=== PATIENT | male | born 1980 | race Caucasian/White ===

== ENCOUNTER 2022-10-01 17:46 | Emergency (ER) | payer BC ==
[2022-10-01] MEDS ORDERED: Sodium Chloride 0.9% 10 ML Syringe FLUSH PRN (17:49)
[2022-10-01] MEDS ORDERED: Aspirin 81 MG Tab.Chew PO ONE (17:49)
[2022-10-01] MEDS ORDERED: Sodium Chloride 0.9% 2.5 ML Syringe FLUSH PRN (17:49)
[2022-10-01] MEDS ORDERED: Morphine 4 MG/ML Syringe IVPUSH ONE (17:57)
[2022-10-01] MEDS ORDERED: Ondansetron 4 MG/2 ML SDV IVPUSH ONE (17:57)
[2022-10-01] MEDS ORDERED: Sodium Chloride 0.9% 1,000 ML IV ONE (17:57)
[2022-10-01 18:42] LABS: BLOOD UREA NITROGEN,BUN 25 mg/dL (7.0-18.0); CARBON DIOXIDE,CO2 29.1 mmol/L (21.0-32.0); CHLORIDE,CL 103 mmol/L (98-107); GLUCOSE RANDOM 92 mg/dL (74-106); POTASSIUM,K 4.1 mmol/L (3.5-5.1); SODIUM,NA 141 mmol/L (136-148)
[2022-10-01 19:00] LABS: ESTIMATED GFR 77 mL/min (>60)
[2022-10-01] MEDS ORDERED: Alum Hydro/Mag Hydro/Simeth XS 15 ML, Metoclopramide 5 MG, Lidocaine 2% 5 ML PO ONE ×3 (19:44)
== END 2022-10-01 20:05 | disposition home or self-care (01) ==
LOC: MW.ED 17:46
DX: R07.9 Chest pain, unspecified (principal)
CPT/HCPCS: 36415; 71045; 80053; 83690; 84484; 85025; 85379; 93005; 96361; 96374; 96375; 99285; A9270; J2270; J2405; J3490; J7030; 93010; 99284